=== PATIENT | female | born 1950 | race Caucasian/White ===

== ENCOUNTER 2018-10-09 16:02 | Emergency (ER) | payer OTHER ==
[2018-10-09 16:15] VITALS: BP 140/67; PULSE 76; TEMP 97.9; BMI 22.8
[2018-10-09] MEDS ORDERED: hydrOXYzine PAMOATE 25 MG CAPSULE (FP) PO ONE ×2 (17:12→17:26)
[2018-10-09] MEDS ORDERED: KETOROLAC TROMETHAMINE 60 MG/2 ML VIAL IM ONE (17:12)
[2018-10-09] MEDS ORDERED: KETOROLAC TROMETHAMINE 30 MG/1 ML VIAL ONE (17:26)
[2018-10-09] MEDS ORDERED: traMADol HCL 50 MG TABLET PO ONE (17:52)
[2018-10-09] MEDS ORDERED: traMADol HCL 50 MG TABLET ONE (18:18)
== END 2018-10-09 18:56 | disposition home or self-care (01) ==
LOC: FER 16:02
PROC: 3E0233Z Introduction of Anti-inflammatory into Muscle, Percutaneous Approach (ICD-10-PCS; principal; 2018-10-09)
DX: M54.5 Low back pain (principal); G89.29 Other chronic pain; I10 Essential (primary) hypertension; E78.5 Hyperlipidemia, unspecified; E78.00 Pure hypercholesterolemia, unspecified; Z87.891 Personal history of nicotine dependence
CPT/HCPCS: 99282-25

== ENCOUNTER 2024-04-02 19:51 | Emergency (ER) | payer OTHER ==
[2024-04-02 20:07] VITALS: BP 161/86; PULSE 78; RESP 18; TEMP 98.6; BMI 23.1
[2024-04-02 21:05] LABS: HEMATOCRIT 34.2 % (32.4-45.2); HEMOGLOBIN 11.4 G/dL (10.7-15.3); MCH 31.1 pg (25.7-33.7); MCHC 33.4 g/dl (32.0-36.0); MEAN CELL VOLUME 93.1 fl (80-96); MEAN PLT VOLUME 8.5 fl (7.5-11.1); PLATELET COUNT 223.1 10^3/uL (134-434); RBC 3.67 10^6/uL (3.60-5.2); RDW 13.7 % (11.6-15.6)
[2024-04-02 21:34] LABS: BILIRUBIN,TOTAL 0.3 mg/dl (0.2-1); CALCIUM 9.1 mg/dl (8.5-10.1); CREATININE 1.1 mg/dl (0.6-1.3); POTASSIUM 3.8 mmol/L (3.5-5.1); TOT PROT 6.6 g/dl (6.4-8.2)
[2024-04-02 21:51] LABS: VENOUS BASE EXCESS 0.7 mmol/L (-2-2); VENOUS O2 SATURATION 65.6 % (70-80); VENOUS PCO2 46.9 mmHg (38-52); VENOUS PH 7.372 (7.310-7.410)
[2024-04-02 22:51] LABS: HIV INTERPRETATION NEGATIVE (NEGATIVE)
[2024-04-02 23:28] LABS: N-TERMINAL BNP 183.8 pg/ml (5-125)
== END 2024-04-02 23:46 | disposition home or self-care (01) ==
LOC: FER 19:51
DX: R05.9 Cough, unspecified (principal); J39.8 Other specified diseases of upper respiratory tract; B97.89 Other viral agents as the cause of diseases classified elsewhere; R06.02 Shortness of breath
CPT/HCPCS: 36415; 71045-TC-FY; 80053; 82550; 82803; 83605; 83735; 83880; 84484; 85027; 85379; 86803; 87389; 93005; 99285-25